=== PATIENT | male | born 1980 | race American Indian/Alaskan Native ===

== ENCOUNTER 2017-05-21 10:17 | Emergency (ER) | payer OTHER ==
[2017-05-21 10:17] VITALS: BMI 24.4
[2017-05-21] MEDS ORDERED: Naproxen 550 mg Tab PO STA (11:12)
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
[2017-05-21] MEDS ORDERED: Naproxen 550 mg Tab PO ONE (11:39)
[2017-05-21 11:44] VITALS: BP 122/76; PULSE 86; RESP 18; TEMP 99
[2017-05-21 12:29] VITALS: O2SAT 97
== END 2017-05-21 11:41 | disposition home or self-care (01) ==
LOC: C.ER 10:17
DX: M79.662 Pain in left lower leg (principal); M79.661 Pain in right lower leg; V89.2XXA Person injured in unspecified motor-vehicle accident, traffic, initial encounter